=== PATIENT | male | born 1940 | race Caucasian/White ===

== ENCOUNTER 2018-01-16 11:10 | Inpatient (IN) | payer OTHER ==
[~2018-01-16] VITALS: Ht 182.9 cm; Wt 90.7 kg
[2018-01-16] MEDS ORDERED: ASPI81TA44 PO (11:43)
[2018-01-16 12:20] VITALS: BP 130/97
[2018-01-16] MEDS ORDERED: LOPERAMIDE HCL 2 MG CAPSULE PO PRN ×2 (13:45)
[2018-01-16] MEDS ORDERED: MIRALAX 17 GM POWD.PACK PO PRN (13:45)
[2018-01-16] MEDS ORDERED: DIAZEPAM 10 MG TABLET PO PRN (13:45)
[2018-01-16] MEDS ORDERED: ONDANSETRON 4 MG/2 ML VIAL IM PRN (13:45)
[2018-01-16] MEDS ORDERED: LORAZEPAM 2 MG/1 ML VIAL IM PRN (13:45)
[2018-01-16] MEDS ORDERED: MAGNESIUM HYDROXIDE 30 ML LIQUID UDC PO PRN (13:45)
[2018-01-16] MEDS ORDERED: THIAMINE HCL 200 MG/2 ML VIAL IM ONE (13:45)
[2018-01-16] MEDS ORDERED: IBUPROFEN 600 MG TABLET PO PRN (13:45)
[2018-01-16] MEDS ORDERED: ONDANSETRON ODT 4 MG TAB.RAPDIS SL PRN (13:45)
[2018-01-16] MEDS ORDERED: DIAZEPAM 5 MG TABLET PO PRN (13:45)
[2018-01-16] MEDS ORDERED: MAG HYDROX/AL HYDROX/SIMETH 30 ML LIQUID UDC PO PRN (13:45)
[2018-01-16] MEDS: DIAZEPAM 10 MG TABLET PO PRN ×2 (14:57→18:58)
[2018-01-16] MEDS ORDERED: 5 DAY TAPER VALIUM-SERENITY PROTOCOL PO PRN (15:30)
[2018-01-16] MEDS ORDERED: LOSA1TAB39 PO (15:56)
[2018-01-16] MEDS ORDERED: LEVO175T2 PO (15:56)
[2018-01-16] MEDS ORDERED: LEVO150T PO (15:56)
[2018-01-16] MEDS ORDERED: ROSU20TA PO (15:56)
[2018-01-16 16:00] VITALS: BP 140/81
[2018-01-16 17:01] LABS: *AMPHETAMINE, URINE NEGATIVE (NEGATIVE); *BARBITURATE, URINE NEGATIVE (NEGATIVE); *CANNABINOID, URINE NEGATIVE (NEGATIVE); *COCCAINE, URINE NEGATIVE (NEGATIVE); *OPIATE, URINE NEGATIVE (NEGATIVE); *PHENCYCLIDINE SCREEN,URINE NEGATIVE (NEGATIVE)
[2018-01-16 17:57] LABS: BASOPHILS % (AUTO) 0.5 % (0.0-2.0); EOSINOPHILS % (AUTO) 0.1 % (0.0-7.0); HEMATOCRIT 45.6 % (36.7-47.1); HEMOGLOBIN 15.3 g/dL (12.5-16.3); LYMPHOCYTES # (AUTO) 1.3 K/uL (20.0-40.0); LYMPHOCYTES % (AUTO) 17.7 % (20.5-51.5); MEAN CORPUSCULAR HEMOGLOBIN 35.6 uug (23.8-33.4); MEAN CORPUSCULAR HGB CONC 34 g/dL (32.5-36.3); MEAN CORPUSCULAR VOLUME 106.5 fL (73.0-96.2); MONOCYTES # (AUTO) 0.9 K/uL (2.0-10.0); NEUTROPHILS # (AUTO) 5.2 K/uL (1.8-8.9); NEUTROPHILS % (AUTO) 69.7 % (38.5-71.5); PLATELET COUNT (AUTO) 172 K/uL (152-348); RED BLOOD CELL COUNT(AUTO) 4.28 MIL/uL (4.06-5.63); WHITE BLOOD COUNT (AUTO) 7.5 K/uL (3.6-10.2)
[2018-01-16 18:21] LABS: ETHANOL < 3 MG/DL (0-0)
[2018-01-16 18:30] LABS: ALANINE AMINOTRANSFERASE 76 U/L (16-63); ALKALINE PHOSPHATASE 112 U/L (50-136); AMYLASE 32 U/L (25-115); ASPARTATE AMINOTRANSFERASE 121 U/L (15-37); BILIRUBIN,TOTAL 1.3 mg/dL (0.2-1.0); CARBON DIOXIDE 24 mmol/L (21-32); CHLORIDE 88 mmol/L (98-107); CREATININE 1.4 mg/dL (0.6-1.3); GLUCOSE 93 mg/dL (74-106); LIPASE 201 U/L (73-393); MAGNESIUM 1.7 mg/dL (1.8-2.4); POTASSIUM 4.6 mmol/L (3.5-5.1); TOTAL PROTEIN, SERUM 7.9 g/dL (6.4-8.2); UREA NITROGEN, BLOOD 27 mg/dL (7-18)
[2018-01-16 18:38] LABS: THYROID STIMULATING HORMONE 4.115 mIU/mL (0.358-3.740)
[2018-01-16 19:45] VITALS: BP 190/106
[2018-01-16] MEDS ORDERED: hydrALAZINE HCL 50 MG TABLET PO ONE (19:45)
[2018-01-16 20:45] VITALS: BP 147/78
[2018-01-16] MEDS: CLONIDINE HCL 0.1 MG TABLET PO PRN (20:54)
[2018-01-16] MEDS: diphenhydrAMINE 50 MG CAPSULE PO PRN (20:54)
[2018-01-16] MEDS ORDERED: MAGNESIUM OXIDE 400 MG TABLET PO ONE (21:00)
[2018-01-17] VITALS (7 sets, daily range): BP systolic 95–145; BP diastolic 53–85
[2018-01-17 08:34] LABS: ALANINE AMINOTRANSFERASE 65 U/L (16-63); ALKALINE PHOSPHATASE 102 U/L (50-136); ASPARTATE AMINOTRANSFERASE 95 U/L (15-37); BILIRUBIN,TOTAL 1.2 mg/dL (0.2-1.0); CARBON DIOXIDE 30 mmol/L (21-32); CHLORIDE 94 mmol/L (98-107); CREATININE 1.2 mg/dL (0.6-1.3); GLUCOSE 108 mg/dL (74-106); MAGNESIUM 2.3 mg/dL (1.8-2.4); POTASSIUM 4.7 mmol/L (3.5-5.1); TOTAL PROTEIN, SERUM 7.1 g/dL (6.4-8.2); UREA NITROGEN, BLOOD 22 mg/dL (7-18)
[2018-01-17] MEDS: LEVOTHYROXINE SODIUM 175 MCG TABLET PO SCH (08:38)
[2018-01-17] MEDS: FOLIC ACID 1 MG TABLET PO SCH (08:46)
[2018-01-17] MEDS: HYDROCHLOROTHIAZIDE 25 MG TABLET PO SCH (08:46)
[2018-01-17] MEDS: THIAMINE HCL 100 MG TABLET PO SCH (08:46)
[2018-01-17] MEDS: LOSARTAN POTASSIUM 50 MG TABLET PO SCH (08:46)
[2018-01-17] MEDS: MULTIVITAMINS,THERAPEUTIC TABLET PO SCH (08:47)
[2018-01-17] MEDS: DIAZEPAM 10 MG TABLET PO SCH ×4 (08:47→20:24)
[2018-01-17] MEDS ORDERED: PATIENT MAY USE OWN MED- MD OK PO SCH ×2 (09:00)
[2018-01-17] MEDS ORDERED: TUBERCULIN,PURIF.PROT.DERIV. 5 TU/0.1 ML TEST ID ONE (09:00)
[2018-01-17 09:49] LABS: THYROID STIMULATING HORMONE 4.504 mIU/mL (0.358-3.740)
[2018-01-17] MEDS ORDERED: MINERAL OIL/PETROLATUM,WHITE 57 GM TUBE TOP PRN (13:15)
[2018-01-17] MEDS: ATORVASTATIN 40 MG TABLET PO SCH (20:24)
[2018-01-17] MEDS: diphenhydrAMINE 50 MG CAPSULE PO PRN (20:24)
[2018-01-17] MEDS: CLONIDINE HCL 0.1 MG TABLET PO PRN (22:04)
[2018-01-18] VITALS: BP 93/60
[2018-01-18] MEDS ORDERED: TRAZODONE 50 MG TABLET PO ONE (02:00)
[2018-01-18 04:00] VITALS: BP 98/61
[2018-01-18 08:00] VITALS: BP 113/75
[2018-01-18 08:06] LABS: HEPATITIS B SURFACE AG Negative (Negative)
[2018-01-18] MEDS: LEVOTHYROXINE SODIUM 175 MCG TABLET PO SCH (08:23)
[2018-01-18] MEDS: MULTIVITAMINS,THERAPEUTIC TABLET PO SCH (08:23)
[2018-01-18] MEDS: DIAZEPAM 10 MG TABLET PO SCH ×3 (08:24→20:50)
[2018-01-18] MEDS: ASPIRIN EC 81 MG TABLET.DR PO SCH (08:24)
[2018-01-18] MEDS: FOLIC ACID 1 MG TABLET PO SCH (08:24)
[2018-01-18] MEDS: HYDROCHLOROTHIAZIDE 25 MG TABLET PO SCH (08:24)
[2018-01-18] MEDS: THIAMINE HCL 100 MG TABLET PO SCH (08:24)
[2018-01-18] MEDS: LOSARTAN POTASSIUM 50 MG TABLET PO SCH (08:24)
[2018-01-18 12:00] VITALS: BP 142/97
[2018-01-18] MEDS: NEOMY/BACITRAC/POLYMI OINT 28.35 GM TUBE TOP SCH (15:32)
[2018-01-18 16:00] VITALS: BP 93/58
[2018-01-18 20:43] VITALS: BP 109/67
[2018-01-18] MEDS: TRAZODONE 50 MG TABLET PO PRN (20:50)
[2018-01-18] MEDS: ATORVASTATIN 40 MG TABLET PO SCH (20:50)
[2018-01-19 00:12] VITALS: BP 112/65
[2018-01-19 04:45] VITALS: BP 153/84
[2018-01-19] MEDS: CLONIDINE HCL 0.1 MG TABLET PO PRN (05:16)
[2018-01-19] MEDS: ALBUTEROL SULFATE 2.5 MG/3 ML NEBU NEB PRN (05:45)
[2018-01-19] MEDS: LEVOTHYROXINE SODIUM 175 MCG TABLET PO SCH (06:42)
[2018-01-19 08:00] VITALS: BP 122/68
[2018-01-19] MEDS: FOLIC ACID 1 MG TABLET PO SCH (09:20)
[2018-01-19] MEDS: DIAZEPAM 5 MG TABLET PO SCH ×4 (09:20→21:31)
[2018-01-19] MEDS: THIAMINE HCL 100 MG TABLET PO SCH (09:20)
[2018-01-19] MEDS: NEOMY/BACITRAC/POLYMI OINT 28.35 GM TUBE TOP SCH (09:20)
[2018-01-19] MEDS: MULTIVITAMINS,THERAPEUTIC TABLET PO SCH (09:20)
[2018-01-19] MEDS: HYDROCHLOROTHIAZIDE 25 MG TABLET PO SCH (09:20)
[2018-01-19] MEDS: LOSARTAN POTASSIUM 50 MG TABLET PO SCH (09:38)
[2018-01-19 12:00] VITALS: BP 102/66
[2018-01-19 16:30] VITALS: BP 107/70
[2018-01-19 20:53] VITALS: BP 139/73
[2018-01-19] MEDS ORDERED: GUAIFENESIN/DEXTROMETHORPHAN 5 ML UDC PO ONE (21:15)
[2018-01-19] MEDS: TRAZODONE 50 MG TABLET PO PRN (21:30)
[2018-01-19] MEDS: ATORVASTATIN 40 MG TABLET PO SCH (21:31)
[2018-01-20 00:22] VITALS: BP 110/69
[2018-01-20 04:40] VITALS: BP 138/73
[2018-01-20] MEDS: LEVOTHYROXINE SODIUM 175 MCG TABLET PO SCH (06:30)
[2018-01-20 07:03] LABS: EOSINOPHILS # (AUTO) 0.2 K/uL (0.0-0.7); EOSINOPHILS % (AUTO) 3.4 % (0.0-7.0); HEMATOCRIT 43.4 % (36.7-47.1); HEMOGLOBIN 14.2 g/dL (12.5-16.3); LYMPHOCYTES # (AUTO) 1.2 K/uL (20.0-40.0); LYMPHOCYTES % (AUTO) 25.7 % (20.5-51.5); MEAN CORPUSCULAR HEMOGLOBIN 35.4 uug (23.8-33.4); MEAN CORPUSCULAR HGB CONC 33 g/dL (32.5-36.3); MEAN CORPUSCULAR VOLUME 108.5 fL (73.0-96.2); MONOCYTES # (AUTO) 0.7 K/uL (2.0-10.0); NEUTROPHILS # (AUTO) 2.7 K/uL (1.8-8.9); NEUTROPHILS % (AUTO) 55.9 % (38.5-71.5); PLATELET COUNT (AUTO) 128 K/uL (152-348); WHITE BLOOD COUNT (AUTO) 4.8 K/uL (3.6-10.2)
[2018-01-20 07:20] LABS: ALANINE AMINOTRANSFERASE 67 U/L (16-63); ALKALINE PHOSPHATASE 137 U/L (50-136); ASPARTATE AMINOTRANSFERASE 67 U/L (15-37); BILIRUBIN,TOTAL 0.3 mg/dL (0.2-1.0); CARBON DIOXIDE 30 mmol/L (21-32); CHLORIDE 99 mmol/L (98-107); CREATININE 1.1 mg/dL (0.6-1.3); GLUCOSE 125 mg/dL (74-106); POTASSIUM 4.5 mmol/L (3.5-5.1); TOTAL PROTEIN, SERUM 6.8 g/dL (6.4-8.2); UREA NITROGEN, BLOOD 25 mg/dL (7-18)
[2018-01-20 08:30] VITALS: BP 160/76
[2018-01-20] MEDS: HYDROCHLOROTHIAZIDE 25 MG TABLET PO SCH (09:43)
[2018-01-20] MEDS: THIAMINE HCL 100 MG TABLET PO SCH (09:43)
[2018-01-20] MEDS: FOLIC ACID 1 MG TABLET PO SCH (09:43)
[2018-01-20] MEDS: DIAZEPAM 5 MG TABLET PO SCH ×3 (09:43→20:04)
[2018-01-20] MEDS: MULTIVITAMINS,THERAPEUTIC TABLET PO SCH (09:43)
[2018-01-20] MEDS: LOSARTAN POTASSIUM 50 MG TABLET PO SCH (09:43)
[2018-01-20] MEDS: ASPIRIN EC 81 MG TABLET.DR PO SCH (09:44)
[2018-01-20] MEDS: NEOMY/BACITRAC/POLYMI OINT 28.35 GM TUBE TOP SCH (09:44)
[2018-01-20 12:00] VITALS: BP 115/75
[2018-01-20 16:00] VITALS: BP 130/86
[2018-01-20] MEDS: ATORVASTATIN 40 MG TABLET PO SCH (20:04)
[2018-01-20 20:14] VITALS: BP 145/83
[2018-01-20] MEDS: TRAZODONE 50 MG TABLET PO PRN (21:47)
[2018-01-20] MEDS ORDERED: GUAIFENESIN/DEXTROMETHORPHAN 5 ML UDC PO ONE (23:55)
[2018-01-21] MEDS: LEVOTHYROXINE SODIUM 175 MCG TABLET PO SCH (06:52)
[2018-01-21 08:00] VITALS: BP 162/91
[2018-01-21] MEDS: DIAZEPAM 5 MG TABLET PO SCH ×2 (08:27→20:34)
[2018-01-21] MEDS: FOLIC ACID 1 MG TABLET PO SCH (08:27)
[2018-01-21] MEDS: LOSARTAN POTASSIUM 50 MG TABLET PO SCH (08:27)
[2018-01-21] MEDS: THIAMINE HCL 100 MG TABLET PO SCH (08:27)
[2018-01-21] MEDS: MULTIVITAMINS,THERAPEUTIC TABLET PO SCH (08:27)
[2018-01-21] MEDS: HYDROCHLOROTHIAZIDE 25 MG TABLET PO SCH (08:27)
[2018-01-21] MEDS: NEOMY/BACITRAC/POLYMI OINT 28.35 GM TUBE TOP SCH (08:28)
[2018-01-21 12:00] VITALS: BP 140/81
[2018-01-21] MEDS: GUAIFENESIN/DEXTROMETHORPHAN 5 ML UDC PO PRN ×2 (13:56→21:33)
[2018-01-21 16:00] VITALS: BP 171/85
[2018-01-21] MEDS: CLONIDINE HCL 0.1 MG TABLET PO PRN (16:47)
[2018-01-21] MEDS: ALBUTEROL SULFATE 2.5 MG/3 ML NEBU NEB PRN (18:19)
[2018-01-21 20:28] VITALS: BP 120/67
[2018-01-21] MEDS: ATORVASTATIN 40 MG TABLET PO SCH (20:34)
[2018-01-21] MEDS: TRAZODONE 50 MG TABLET PO PRN (21:33)
[2018-01-22 04:06] VITALS: BP 122/71
[2018-01-22] MEDS: LEVOTHYROXINE SODIUM 175 MCG TABLET PO SCH (06:52)
[2018-01-22 08:00] VITALS: BP 134/88
[2018-01-22] MEDS: NEOMY/BACITRAC/POLYMI OINT 28.35 GM TUBE TOP SCH (09:00)
[2018-01-22] MEDS: ASPIRIN EC 81 MG TABLET.DR PO SCH (09:10)
[2018-01-22] MEDS: FOLIC ACID 1 MG TABLET PO SCH (09:11)
[2018-01-22] MEDS: THIAMINE HCL 100 MG TABLET PO SCH (09:11)
[2018-01-22] MEDS: LOSARTAN POTASSIUM 50 MG TABLET PO SCH (09:11)
[2018-01-22] MEDS: HYDROCHLOROTHIAZIDE 25 MG TABLET PO SCH (09:12)
[2018-01-22] MEDS: MULTIVITAMINS,THERAPEUTIC TABLET PO SCH (09:12)
[2018-01-22 12:00] VITALS: BP 147/80
[2018-01-22] MEDS ORDERED: GUAI5SYR PO (15:04)
[2018-01-22] MEDS ORDERED: TRAZ-213 PO (15:04)
[2018-01-22] MEDS ORDERED: CLON0.1T14 PO (15:04)
[2018-01-22] MEDS ORDERED: MULT-24 PO (15:04)
[2018-01-22 16:00] VITALS: BP 112/72
[2018-01-22 20:19] VITALS: BP 149/79
[2018-01-22] MEDS: ATORVASTATIN 40 MG TABLET PO SCH (20:49)
[2018-01-22] MEDS: CLONIDINE HCL 0.1 MG TABLET PO PRN (20:49)
[2018-01-22 21:49] VITALS: BP 139/86
[2018-01-22] MEDS: TRAZODONE 50 MG TABLET PO PRN (21:56)
[2018-01-23] MEDS: GUAIFENESIN/DEXTROMETHORPHAN 5 ML UDC PO PRN ×2 (00:50→08:33)
[2018-01-23] MEDS: LEVOTHYROXINE SODIUM 175 MCG TABLET PO SCH (07:33)
[2018-01-23 08:00] VITALS: BP 102/72
[2018-01-23] MEDS: FOLIC ACID 1 MG TABLET PO SCH (08:19)
[2018-01-23] MEDS: LOSARTAN POTASSIUM 50 MG TABLET PO SCH (08:19)
[2018-01-23 08:20] VITALS: BP 102/72
[2018-01-23] MEDS: THIAMINE HCL 100 MG TABLET PO SCH (08:20)
[2018-01-23] MEDS: MULTIVITAMINS,THERAPEUTIC TABLET PO SCH (08:20)
[2018-01-23] MEDS: HYDROCHLOROTHIAZIDE 25 MG TABLET PO SCH (08:20)
[2018-01-23] MEDS: NEOMY/BACITRAC/POLYMI OINT 28.35 GM TUBE TOP SCH (08:27)
== END 2018-01-23 09:30 | disposition other institution (70) | DRG 895 ==
LOC: SRC 11:20
PROVIDERS: ADMIT Family Medicine Addiction Medicine; ATTEND Family Medicine Addiction Medicine
PROC: HZ41ZZZ Group Counseling for Substance Abuse Treatment, Behavioral (ICD-10-PCS; principal; 2018-01-16)
PROC: HZ2ZZZZ Detoxification Services for Substance Abuse Treatment (ICD-10-PCS; principal; 2018-01-16)
PROC: HZ31ZZZ Individual Counseling for Substance Abuse Treatment, Behavioral (ICD-10-PCS; 2018-01-17)
DX: F10.230 Alcohol dependence with withdrawal, uncomplicated (principal); Y90.0 Blood alcohol level of less than 20 mg/100 ml; E78.2 Mixed hyperlipidemia; E03.9 Hypothyroidism, unspecified; R05 Cough; Z66 Do not resuscitate; E83.42 Hypomagnesemia; Z87.891 Personal history of nicotine dependence; Z79.899 Other long term (current) drug therapy; R60.0 Localized edema; S91.101A Unspecified open wound of right great toe without damage to nail, initial encounter; S81.802A Unspecified open wound, left lower leg, initial encounter; W19.XXXA Unspecified fall, initial encounter; Y92.89 Other specified places as the place of occurrence of the external cause; Z63.0 Problems in relationship with spouse or partner; F41.9 Anxiety disorder, unspecified; R26.81 Unsteadiness on feet; I10 Essential (primary) hypertension; F32.9 Major depressive disorder, single episode, unspecified
CPT/HCPCS: 36415; 70030-TC; 71046; 80307; 82746; 83690; 83735; 84443; 85025; 85610; 86580; 86592; 86705; 86803; 87340; 87806; 94640; 94664; A4663; G0480; J3411; Q0163